=== PATIENT | male | born 1985 | race Two or more races ===

== ENCOUNTER 2022-05-12 02:53 | Inpatient (IN) | payer MEDICAID ==
[2022-05-12] VITALS (57 sets, daily range): BP systolic 75–169; BP diastolic 40–107
[~2022-05-12] VITALS: Ht 167.6 cm; Wt 80.0 kg
[2022-05-12] MEDS ORDERED: ONDANSETRON HCL 4MG/2ML INJ IV STA (03:01)
[2022-05-12] MEDS ORDERED: PROPOFOL 10MG/ML 100ML 100 ML IV ONE (03:15)
[2022-05-12] MEDS ORDERED: VECURONIUM BROMIDE 10 MG/VIAL IV ONE (03:15)
[2022-05-12] MEDS ORDERED: SODIUM CHLORIDE 0.9% 1,000 ML IV ONE ×2 (03:15→04:45)
[2022-05-12] MEDS ORDERED: ETOMIDATE 2MG/ML 10ML VIAL IV ONE (03:15)
[2022-05-12 04:04] LABS: BG BASE EXCESS -10.1 mmol/L (-2.0-2.0); BG CARBOXYHEMOGLOBIN 0.2 % (0.5-1.5); BG FRACTION INSPIRED OXYGEN 60; BG HCO3 ACT 19.1 mmol/L (22.0-26.0); BG METHEMOGLOBIN 0.4 % (0.0-1.5); BG OXYHEMOGLOBIN 97.4 % (94.0-97.0); BG PCO2 54.2 mmHg (35.0-45.0); BG PH 7.164 (7.350-7.450); BG PO2 128.6 mmHg (75.0-100.0); BG SAMPLE SITE RIGHT RADIAL; BG TOTAL HEMOGLOBIN 16.7 g/dL (12.0-18.0); BG TOTAL RESPIRATORY RATE 14 b/min
[2022-05-12 04:12] LABS: HEMATOCRIT. 47.2 % (42.0-52.0); HEMOGLOBIN. 15.5 g/dL (14.0-18.0); MEAN CORPUSCULAR VOLUME 91.7 fL (80.0-94.0); MEAN PLATELET VOLUME 8.3 fl (7.4-10.4); PLATELET 287 x1000/uL (130-400); RED BLOOD CELL COUNT 5.15 mill/uL (4.7-6.1); RED CELL DISTRIBUTION WIDTH 14.8 % (11.6-14.6)
[2022-05-12 04:20] LABS: CHLORIDE 105 mEq/L (98-107)
[2022-05-12 04:23] LABS: PROTHROMBIN TIME 10.3 sec (9.6-11.0)
[2022-05-12 04:31] LABS: ETHANOL BLOOD < 10 mg/dL
[2022-05-12 05:29] LABS: PLATELET ESTIMATE NORMAL
[2022-05-12] MEDS ORDERED: FENTANYL CITRATE/PF 500 MCG in SODIUM CHLORIDE 0.9% 40 ML IV STA (06:10)
[2022-05-12] MEDS ORDERED: FENTANYL CITRATE/PF 50MCG/ML 2ML VIAL IV ONE (06:15)
[2022-05-12] MEDS ORDERED: MIDAZOLAM HCL 100 MG in DEXT 5% WATER 80 ML IV ONE (06:15)
[2022-05-12] MEDS ORDERED: ONDANSETRON HCL 4MG/2ML INJ IV PRN (06:30)
[2022-05-12] MEDS ORDERED: NOREPINEPHRINE 8 MG in DEXT 5% WATER 242 ML IV PRN (06:30)
[2022-05-12] MEDS ORDERED: ACETAMINOPHEN 325MG TABLET PO PRN (06:30)
[2022-05-12] MEDS ORDERED: DOCUSATE SODIUM 100MG CAPSULE PO PRN (06:30)
[2022-05-12] MEDS ORDERED: CLONIDINE 0.1MG TABLET PO PRN (06:30)
[2022-05-12] MEDS ORDERED: ENOXAPARIN 40MG/0.4ML SYR SUBCUT SCH (06:30)
[2022-05-12] MEDS ORDERED: MAGNESIUM/ALUMINUM HYDROXIDE/SIMETHICONE 30ML UDC PO PRN (06:30)
[2022-05-12] MEDS ORDERED: IPRATROPIUM/ALBUTEROL 0.5-3(2.5)MG/3ML NEB NEB PRN (06:30)
[2022-05-12] MEDS ORDERED: GUAIFENESIN 200MG/10ML SUGAR FREE UDC PO PRN (06:30)
[2022-05-12 06:39] LABS: CLARITY URINE CLEAR (CLEAR); COLOR URINE YELLOW (YELLOW); KETONES URINE TRACE (NEGATIVE); LEUKOCYTE ESTERASE URINE NEGATIVE (NEGATIVE); NITRITE URINE NEGATIVE (NEGATIVE); OCCULT BLOOD URINE 2+ (NEGATIVE); PH URINE 5.5 (4.5-8.0); PROTEIN URINE 2+ (NEGATIVE); SPECIFIC GRAVITY URINE 1.022 (1.005-1.030); UROBILINOGEN URINE 0.2 E.U./dL (0.2-1.0)
[2022-05-12] MEDS ORDERED: NITROGLYCERIN 0.4MG TABLET SL SL PRN (06:45)
[2022-05-12] MEDS ORDERED: MIDAZOLAM HCL 100 MG in SODIUM CHLORIDE 0.9% 80 ML IV ONE (06:45)
[2022-05-12 07:14] LABS: *AMPHETAMINES SCREEN URINE PRESUMTIVE POSITIVE (NEGATIVE); *BARBITURATES SCREEN URINE NEGATIVE (NEGATIVE); *BENZODIAZEPINES SCREEN URINE PRESUMTIVE POSITIVE (NEGATIVE); *COCAINE SCREEN URINE NEGATIVE (NEGATIVE); CANNABINOID URINE SCREEN PRESUMTIVE POSITIVE (NEGATIVE); METHADONE URINE SCREEN NEGATIVE (NEGATIVE); OPIATES URINE SCREEN NEGATIVE (NEGATIVE); PHENCYCLIDINE URINE SCREEN NEGATIVE (NEGATIVE)
[2022-05-12] MEDS ORDERED: VANCOMYCIN 1G PREMIX 200 ML IV SCH (07:45)
[2022-05-12] MEDS ORDERED: PIPERACILLIN/TAZ 3.375G PREMIX 50 ML IV SCH (08:00)
[2022-05-12] MEDS ORDERED: FENTANYL CITRATE 2,500 MCG in SODIUM CHLORIDE 0.9% 200 ML IV PRN (08:15)
[2022-05-12] MEDS ORDERED: NOREPINEPHRINE 8MG/250ML PMX 250 ML IV PRN (08:15)
[2022-05-12 08:51] LABS: BG BASE EXCESS -0.5 mmol/L (-2.0-2.0); BG CARBOXYHEMOGLOBIN 1.5 % (0.5-1.5); BG DEOXYHEMOGLOBIN 0.5 % (0.0-5.0); BG FRACTION INSPIRED OXYGEN 45; BG HCO3 ACT 22.5 mmol/L (22.0-26.0); BG METHEMOGLOBIN 0.3 % (0.0-1.5); BG OXYGEN SATURATION 99.5 % (92.0-98.5); BG OXYHEMOGLOBIN 97.7 % (94.0-97.0); BG PCO2 32.8 mmHg (35.0-45.0); BG PH 7.455 (7.350-7.450); BG PO2 140.1 mmHg (75.0-100.0); BG SAMPLE SITE RIGHT RADIAL; BG TOTAL HEMOGLOBIN 15.6 g/dL (12.0-18.0); BG VENT MODE VENT - AC
[2022-05-12] MEDS ORDERED: ENOXAPARIN 30MG/0.3ML SYR SUBCUT SCH (09:00)
[2022-05-12] MEDS: DEXT 5%/LACTATED RINGERS 1,000 ML IV SCH (10:00)
[2022-05-12 10:28] LABS: T4 FREE 1.06 ng/dL (0.76-1.46)
[2022-05-12] MEDS ORDERED: NOREPINEPHRINE 32 MG in DEXT 5% WATER 218 ML IV PRN (11:00)
[2022-05-12] MEDS: PIPERACILLIN/TAZOBACTAM 3.375G in DEXT 5% WATER 50ML IV SCH ×2 (11:27→21:53)
[2022-05-12] MEDS: PANTOPRAZOLE SODIUM 40 MG/VIAL IV SCH (11:27)
[2022-05-12] MEDS: ASPIRIN 325MG EC TABLET PO SCH (11:28)
[2022-05-12 11:35] LABS: VITAMIN B12 SERUM 607 pg/mL (211-911)
[2022-05-12] MEDS: VANCOMYCIN 750MG PREMIX 150 ML IV SCH (13:03)
[2022-05-12] MEDS ORDERED: PIPERACILLIN/TAZOBACTAM 3.375G in DEXT 5% WATER 50ML IV SCH (14:00)
[2022-05-12] MEDS: FENTANYL CITRATE/PF 2,500 MCG in SODIUM CHLORIDE 0.9% 200 ML IV PRN (15:48)
[2022-05-12 17:49] LABS: CREATINE KINASE MB FRACTION 6.8 ng/mL (0.5-3.6)
[2022-05-12] MEDS: MIDAZOLAM HCL 100 MG in SODIUM CHLORIDE 0.9% 80 ML IV PRN (18:08)
[2022-05-12] MEDS: ATORVASTATIN CALCIUM 40MG TABLET PO SCH (20:45)
[2022-05-12] MEDS: IPRATROPIUM/ALBUTEROL 0.5-3(2.5)MG/3ML NEB HHN SCH (21:40)
[2022-05-13] VITALS (96 sets, daily range): BP systolic 77–195; BP diastolic 17–157
[2022-05-13 00:08] LABS: CREATINE KINASE MB FRACTION 7.2 ng/mL (0.5-3.6)
[2022-05-13] MEDS: DEXT 5%/LACTATED RINGERS 1,000 ML IV SCH ×3 (00:48→17:58)
[2022-05-13] MEDS: VANCOMYCIN 750MG PREMIX 150 ML IV SCH (00:51)
[2022-05-13] MEDS: IPRATROPIUM/ALBUTEROL 0.5-3(2.5)MG/3ML NEB HHN SCH ×7 (00:53→23:58)
[2022-05-13] MEDS: PIPERACILLIN/TAZOBACTAM 3.375G in DEXT 5% WATER 50ML IV SCH ×3 (05:40→21:24)
[2022-05-13 05:52] LABS: BASOPHILS % 0.2 % (0.0-2.0); EOSINOPHILS % 0.3 % (0.0-5.0); HEMATOCRIT. 39.9 % (42.0-52.0); HEMOGLOBIN. 13.5 g/dL (14.0-18.0); LYMPHOCYTES % 13.8 % (20.0-50.0); MEAN CORPUSCULAR HEMOGLOBIN 30.9 pg (28.0-32.0); MEAN CORPUSCULAR VOLUME 90.9 fL (80.0-94.0); MEAN PLATELET VOLUME 8.6 fl (7.4-10.4); MONOCYTES % 6.9 % (2.0-8.0); NEUTROPHILS % 78.8 % (40.0-76.0); PLATELET 252 x1000/uL (130-400); RED BLOOD CELL COUNT 4.39 mill/uL (4.7-6.1)
[2022-05-13 06:05] LABS: CHLORIDE 106 mEq/L (98-107)
[2022-05-13 06:39] LABS: CREATINE KINASE 2345 IU/L (39-308); PHOSPHORUS 2.1 mg/dL (2.5-4.9)
[2022-05-13] MEDS: FENTANYL CITRATE/PF 2,500 MCG in SODIUM CHLORIDE 0.9% 200 ML IV PRN (06:58)
[2022-05-13 08:28] LABS: BG BASE EXCESS -1.8 mmol/L (-2.0-2.0); BG CARBOXYHEMOGLOBIN 0.4 % (0.5-1.5); BG DEOXYHEMOGLOBIN 2.6 % (0.0-5.0); BG FRACTION INSPIRED OXYGEN 35; BG HCO3 ACT 22.9 mmol/L (22.0-26.0); BG METHEMOGLOBIN 0.1 % (0.0-1.5); BG OXYGEN SATURATION 97.4 % (92.0-98.5); BG OXYHEMOGLOBIN 96.9 % (94.0-97.0); BG PCO2 39.2 mmHg (35.0-45.0); BG PH 7.385 (7.350-7.450); BG SAMPLE SITE RIGHT RADIAL; BG TOTAL HEMOGLOBIN 13.4 g/dL (12.0-18.0); BG TOTAL RESPIRATORY RATE 16 b/min; BG VENT MODE VENT - AC
[2022-05-13] MEDS ORDERED: POTASSIUM PHOS,M-BASIC-D-BASIC 20 MMOL in DEXT 5% WATER 243.3333 ML IV ONE (08:30)
[2022-05-13] MEDS: ENOXAPARIN 40MG/0.4ML SYR SUBCUT SCH (10:55)
[2022-05-13] MEDS: PANTOPRAZOLE SODIUM 40 MG/VIAL IV SCH (10:55)
[2022-05-13] MEDS: ASPIRIN 325MG EC TABLET PO SCH (10:55)
[2022-05-13] MEDS: QUETIAPINE FUMARATE 25MG TABLET PO SCH (16:34)
[2022-05-13] MEDS: MIDAZOLAM HCL 100 MG in SODIUM CHLORIDE 0.9% 80 ML IV PRN (17:42)
[2022-05-13] MEDS: ATORVASTATIN CALCIUM 40MG TABLET PO SCH (21:23)
[2022-05-14] VITALS (55 sets, daily range): BP systolic 101–162; BP diastolic 59–108
[2022-05-14] MEDS: DEXT 5%/LACTATED RINGERS 1,000 ML IV SCH ×3 (02:49→18:42)
[2022-05-14] MEDS: IPRATROPIUM/ALBUTEROL 0.5-3(2.5)MG/3ML NEB HHN SCH ×6 (03:52→23:32)
[2022-05-14] MEDS: PIPERACILLIN/TAZOBACTAM 3.375G in DEXT 5% WATER 50ML IV SCH ×3 (05:59→21:29)
[2022-05-14 06:30] LABS: HEMATOCRIT 39.5 % (42.0-52.0); HEMOGLOBIN 12.8 g/dL (14.0-18.0); MEAN CORPUSCULAR HEMOGLOBIN 30.5 pg (28.0-32.0); PLATELET 154 x1000/uL (130-400); RED CELL DISTRIBUTION WIDTH 15.7 % (11.6-14.6)
[2022-05-14 06:40] LABS: PHOSPHORUS 4.8 mg/dL (2.5-4.9)
[2022-05-14 09:17] LABS: BG BASE EXCESS -2.7 mmol/L (-2.0-2.0); BG CARBOXYHEMOGLOBIN 0.3 % (0.5-1.5); BG DEOXYHEMOGLOBIN 2.3 % (0.0-5.0); BG FRACTION INSPIRED OXYGEN 30; BG HCO3 ACT 23.3 mmol/L (22.0-26.0); BG METHEMOGLOBIN 0.3 % (0.0-1.5); BG OXYGEN SATURATION 97.7 % (92.0-98.5); BG OXYHEMOGLOBIN 97.1 % (94.0-97.0); BG PH 7.332 (7.350-7.450); BG PO2 103.5 mmHg (75.0-100.0); BG SAMPLE SITE RIGHT RADIAL; BG VENT MODE VENT - AC
[2022-05-14] MEDS: ASPIRIN 325MG EC TABLET PO SCH (09:42)
[2022-05-14] MEDS: PANTOPRAZOLE SODIUM 40 MG/VIAL IV SCH (09:42)
[2022-05-14] MEDS: QUETIAPINE FUMARATE 25MG TABLET PO SCH (09:42)
[2022-05-14] MEDS: ENOXAPARIN 40MG/0.4ML SYR SUBCUT SCH (09:43)
[2022-05-14] MEDS ORDERED: VANCOMYCIN 750MG PREMIX 150 ML IV NR (12:00)
[2022-05-14 14:47] LABS: BG BASE EXCESS -1.4 mmol/L (-2.0-2.0); BG CARBOXYHEMOGLOBIN 0.3 % (0.5-1.5); BG DEOXYHEMOGLOBIN 1.3 % (0.0-5.0); BG FRACTION INSPIRED OXYGEN 40; BG HCO3 ACT 24.5 mmol/L (22.0-26.0); BG METHEMOGLOBIN 0.2 % (0.0-1.5); BG OXYGEN SATURATION 98.7 % (92.0-98.5); BG OXYHEMOGLOBIN 98.2 % (94.0-97.0); BG PCO2 45.8 mmHg (35.0-45.0); BG PH 7.346 (7.350-7.450); BG SAMPLE SITE RIGHT RADIAL; BG TOTAL HEMOGLOBIN 12.9 g/dL (12.0-18.0); BG VENT MODE VENT - CPAP
[2022-05-14] MEDS: ATORVASTATIN CALCIUM 40MG TABLET PO SCH (21:29)
[2022-05-15] VITALS (53 sets, daily range): BP systolic 119–183; BP diastolic 51–104
[2022-05-15] MEDS: DEXT 5%/LACTATED RINGERS 1,000 ML IV SCH ×3 (01:58→21:34)
[2022-05-15] MEDS: IPRATROPIUM/ALBUTEROL 0.5-3(2.5)MG/3ML NEB HHN SCH ×5 (03:13→20:24)
[2022-05-15 04:44] LABS: CHLORIDE 108 mEq/L (98-107)
[2022-05-15 04:45] LABS: HEMATOCRIT 35.4 % (42.0-52.0); HEMOGLOBIN 11.8 g/dL (14.0-18.0); MEAN CORPUSCULAR HEMOGLOBIN 30.5 pg (28.0-32.0); MEAN CORPUSCULAR VOLUME 91.3 fL (80.0-94.0); PLATELET 192 x1000/uL (130-400); RED BLOOD CELL COUNT 3.88 mill/uL (4.7-6.1); RED CELL DISTRIBUTION WIDTH 15.3 % (11.6-14.6)
[2022-05-15 04:55] LABS: PHOSPHORUS 3.5 mg/dL (2.5-4.9)
[2022-05-15] MEDS: PIPERACILLIN/TAZOBACTAM 3.375G in DEXT 5% WATER 50ML IV SCH ×3 (05:21→21:35)
[2022-05-15] MEDS: PANTOPRAZOLE SODIUM 40 MG/VIAL IV SCH (08:51)
[2022-05-15] MEDS: ASPIRIN 325MG EC TABLET PO SCH (08:52)
[2022-05-15] MEDS: QUETIAPINE FUMARATE 25MG TABLET PO SCH (08:54)
[2022-05-15] MEDS: ACETAMINOPHEN 325MG TABLET PO PRN (08:54)
[2022-05-15] MEDS: ENOXAPARIN 30MG/0.3ML SYR SUBCUT SCH (09:29)
[2022-05-15] MEDS ORDERED: VANCOMYCIN 750MG PREMIX 150 ML IV SCH (15:00)
[2022-05-15] MEDS: ATORVASTATIN CALCIUM 40MG TABLET PO SCH (21:35)
[2022-05-16] VITALS: BP 131/71
[2022-05-16] MEDS: IPRATROPIUM/ALBUTEROL 0.5-3(2.5)MG/3ML NEB HHN SCH ×6 (00:52→20:39)
[2022-05-16 04:00] VITALS: BP 142/79
[2022-05-16] MEDS: DEXT 5%/LACTATED RINGERS 1,000 ML IV SCH ×3 (04:20→17:23)
[2022-05-16] MEDS: PIPERACILLIN/TAZOBACTAM 3.375G in DEXT 5% WATER 50ML IV SCH ×3 (05:30→21:14)
[2022-05-16 06:31] LABS: BASOPHILS % 0.5 % (0.0-2.0); EOSINOPHILS % 3.9 % (0.0-5.0); HEMATOCRIT. 37.7 % (42.0-52.0); HEMOGLOBIN. 12.6 g/dL (14.0-18.0); LYMPHOCYTES % 21.5 % (20.0-50.0); MEAN CORPUSCULAR HEMOGLOBIN 30.3 pg (28.0-32.0); MEAN CORPUSCULAR VOLUME 90.9 fL (80.0-94.0); MEAN PLATELET VOLUME 8.7 fl (7.4-10.4); MONOCYTES % 5.7 % (2.0-8.0); NEUTROPHILS % 68.4 % (40.0-76.0); PLATELET 266 x1000/uL (130-400); RED BLOOD CELL COUNT 4.15 mill/uL (4.7-6.1); RED CELL DISTRIBUTION WIDTH 14.4 % (11.6-14.6)
[2022-05-16 08:00] VITALS: BP 127/79
[2022-05-16 08:44] LABS: CHLORIDE 105 mEq/L (98-107)
[2022-05-16] MEDS: ASPIRIN 325MG EC TABLET PO SCH (08:46)
[2022-05-16] MEDS: ENOXAPARIN 30MG/0.3ML SYR SUBCUT SCH (08:46)
[2022-05-16] MEDS: QUETIAPINE FUMARATE 25MG TABLET PO SCH (08:46)
[2022-05-16] MEDS: PANTOPRAZOLE SODIUM 40 MG/VIAL IV SCH (08:46)
[2022-05-16 09:29] LABS: PHOSPHORUS 3.4 mg/dL (2.5-4.9)
[2022-05-16 12:00] VITALS: BP 149/89
[2022-05-16] MEDS: VANCOMYCIN 750MG PREMIX 150 ML IV SCH (12:47)
[2022-05-16 16:00] VITALS: BP 134/89
[2022-05-16] MEDS: ACETAMINOPHEN 325MG TABLET PO PRN (16:16)
[2022-05-16 20:00] VITALS: BP 147/88
[2022-05-16] MEDS: ATORVASTATIN CALCIUM 40MG TABLET PO SCH (20:24)
[2022-05-17] VITALS: BP 134/85
[2022-05-17] MEDS: IPRATROPIUM/ALBUTEROL 0.5-3(2.5)MG/3ML NEB HHN SCH ×3 (00:25→08:34)
[2022-05-17] MEDS: DEXT 5%/LACTATED RINGERS 1,000 ML IV SCH (01:08)
[2022-05-17 04:00] VITALS: BP 129/87
[2022-05-17] MEDS: VANCOMYCIN 750MG PREMIX 150 ML IV SCH (05:40)
[2022-05-17] MEDS: PIPERACILLIN/TAZOBACTAM 3.375G in DEXT 5% WATER 50ML IV SCH (06:04)
[2022-05-17 06:33] LABS: HEMATOCRIT 39.9 % (42.0-52.0); HEMOGLOBIN 13.6 g/dL (14.0-18.0); MEAN CORPUSCULAR HEMOGLOBIN 30.4 pg (28.0-32.0); PLATELET 327 x1000/uL (130-400); RED BLOOD CELL COUNT 4.48 mill/uL (4.7-6.1); RED CELL DISTRIBUTION WIDTH 14.3 % (11.6-14.6)
[2022-05-17 08:00] VITALS: BP 131/80
[2022-05-17] MEDS: ASPIRIN 325MG EC TABLET PO SCH (08:30)
[2022-05-17 09:04] LABS: CHLORIDE 101 mEq/L (98-107)
[2022-05-17] MEDS: ENOXAPARIN 30MG/0.3ML SYR SUBCUT SCH (09:17)
[2022-05-17] MEDS: PANTOPRAZOLE SODIUM 40 MG/VIAL IV SCH (09:20)
[2022-05-17] MEDS ORDERED: LEVO750T68 MT (09:53)
[2022-05-17] MEDS ORDERED: AMOX1TAB16 MT (09:53)
[2022-05-17] MEDS ORDERED: MAGNESIUM OXIDE 400MG TABLET PO SCH (10:11)
[2022-05-17 10:48] VITALS: BP 131/80
== END 2022-05-17 12:15 | disposition home or self-care (01) | DRG 812 ==
LOC: ER 02:53 → CVICU 04:58 → EDBD 04:58 → 7WST 05-15 23:55
PROVIDERS: ADMIT Internal Medicine; ATTEND Internal Medicine
PROC: 5A1945Z Respiratory Ventilation, 24-96 Consecutive Hours (ICD-10-PCS; principal; 2022-05-12)
PROC: 0BH17EZ Insertion of Endotracheal Airway into Trachea, Via Natural or Artificial Opening (ICD-10-PCS; 2022-05-12)
DX: T50.7X1A Poisoning by analeptics and opioid receptor antagonists, accidental (unintentional), initial encounter (principal); J96.01 Acute respiratory failure with hypoxia; G92.8 Other toxic encephalopathy; N17.9 Acute kidney failure, unspecified; E87.20 Acidosis, unspecified; Z20.822 Contact with and (suspected) exposure to COVID-19; M62.82 Rhabdomyolysis; I24.8 Other forms of acute ischemic heart disease; R79.89 Other specified abnormal findings of blood chemistry; E78.5 Hyperlipidemia, unspecified; N20.0 Calculus of kidney; F19.10 Other psychoactive substance abuse, uncomplicated; Z28.310 Unvaccinated for COVID-19; Y92.89 Other specified places as the place of occurrence of the external cause
CPT/HCPCS: 31500; 36415; 36600; 70486; 71045; 74176; 76770; 80048; 80053; 80061; 80202; 80305; 80307; 80320; 80329; 81003; 82140; 82375; 82550; 82553; 82570; 82607; 82746; 82805; 83036; 83540; 83550; 83605; 83735; 84100; 84145; 84300; 84425; 84439; 84443; 84484; 85025; 85027; 86850; 86900; 87070; 87077; 87186; 87426; 93005; 93306; 93970; 94002; 94003; 94640; 97162; 99291; C9113; C9803; J1650; J2250; J2543; J2704; J3010; J3370; J3490; J7030; J7050; J7060; J7121; G0480